=== PATIENT | male | born 1940 | race Caucasian/White ===

== ENCOUNTER → 2019-02-12 | Day surgery (SDC) | payer MEDICARE, BC ==
[2019-02-12] MEDS: Lactated Ringers 1,000 ML IV SCH (08:07)
[2019-02-12] MEDS: Meperidine PF 50 MG/ML Syringe IV ONE (08:39)
[2019-02-12] MEDS: Midazolam 1 MG/ML 2 ML SDV IV ONE ×3 (08:39→08:43)
--- NOTE | 2019-02-12 13:03 | OR ---
DATE OF OPERATION: 02/12/2019 PREOPERATIVE DIAGNOSIS: POSITIVE COLOGUARD. POSTOPERATIVE DIAGNOSIS: POSITIVE COLOGUARD. SURGEON: Raul Hudson MD PROCEDURE: FULL-LENGTH COLONOSCOPY WITH FORCEPS POLYP REMOVAL X4, RECTAL VAULT. ANESTHESIA: Conscious sedation with continuous O2 saturation monitoring with nurse assist with sats remaining above 90% for the entire procedure. Given a total of 75 mg of fentanyl and 6 mg of Versed. COMPLICATIONS: None. SPECIMEN: Biopsies x4, rectal vault. FINDINGS: 1. Full-length colonoscopy. 2. Mild distal sigmoid and rectosigmoid diverticulosis. 3. Hyperplastic polyps, rectal vault. RECOMMENDATIONS: Routine followup colonoscopy in 3 to 5 years pending path report. The patient has a coalescing of multiple small flat hyperplastic- appearing lesions in the rectal vault. If biopsy confirms, these can be monitored routinely. INDICATIONS: The patient was in to see Dr. Trujillo for abdominal pain. A CT scan was ordered and essentially negative. He ended up having a positive Cologuard. It has been over 20 years since his last endoscopy. Dr. Trujillo sent him for diagnostic scope. DESCRIPTION OF PROCEDURE: The patient was prepped and draped, placed in the left lateral decubitus position. A lubricated Olympus colonoscope was inserted and easily advanced to the cecum. We were able to directly visualize the ileocecal valve and appendiceal orifice. The bowel prep was fine. Upon withdrawal of the scope, the entire right, transverse, and descending areas were completely benign. The sigmoid colon was grossly unremarkable until its most distal portion. Around 30 cm, there was a small area of colitis. I suspect this was trauma-induced from the scopes. The patient was very tortuous in this area. Nevertheless, we did do a biopsy of that area. In the most distal sigmoid and rectosigmoid region, the patient had mild diverticular disease without any inflammatory changes. Throughout the entire colon until the rectal vault, he had no other polyps, masses, or lesions. We did retroflexion of the rectal vault which showed no perianal lesions other than hemorrhoid tissue. The rectal vault itself in its most distal portion had a small patch of what appeared to be flat hyperplastic polyps kind of coalescing together, did remove 4 of the larger ones, some of these were very minuscule, 1 or 2 mm at best and flat, hard to visualize with full air in the rectum. Air was then suctioned from the colon, the scope removed without complication. LATOSHA/MORIAH /[id number]
== END ==
LOC: CC.SDS 07:45
PROVIDERS: ATTEND Family Medicine
DX: K57.30 Diverticulosis of large intestine without perforation or abscess without bleeding (principal); K62.1 Rectal polyp; K52.9 Noninfective gastroenteritis and colitis, unspecified; E78.5 Hyperlipidemia, unspecified; E55.9 Vitamin D deficiency, unspecified; M19.90 Unspecified osteoarthritis, unspecified site; Z79.82 Long term (current) use of aspirin; Z79.899 Other long term (current) drug therapy
CPT/HCPCS: 45380; 88305; J2175; J2250; J7120